=== PATIENT | male | born 1930 | race Caucasian/White ===

== ENCOUNTER → 2018-01-15 | Outpatient (CLI) | payer MEDICARE, BC ==
[2015-10-26 11:41] VITALS: BP 132/43
[~2018-01-15] MED LIST: ALLO300T PO; ATOR20TA58 PO; HYDR25TA9 PO; MULT-460 PO; NEBI5TAB2 PO; NITR0.4T22 SL; OMEP40CA5 PO; RIVA10TA PO
[2018-01-15 13:12] LABS: ALBUMIN 4.1 g/dL (3.4-5.0); ALBUMIN/GLOBULIN RATIO 1.1 (1.0-1.7); CALCIUM 9.3 mg/dL (8.5-10.1); CREATININE 1.6 mg/dL (0.7-1.3); POTASSIUM 4.2 mmol/L (3.5-5.1); TOTAL BILIRUBIN 0.8 mg/dL (0.2-1.0); TOTAL PROTEIN 7.8 g/dL (6.4-8.2)
== END ==
LOC: LAB 10:38
PROVIDERS: ATTEND Nurse Practitioner
DX: E78.5 Hyperlipidemia, unspecified (principal)
CPT/HCPCS: 36415; 80053; 80061

== ENCOUNTER 2018-10-18 20:46 | Emergency (ER) | payer MEDICARE, BC ==
[~2018-10-18] VITALS: Ht 190.5 cm; Wt 99.8 kg
--- NOTE | 2018-10-18 20:48 | ED.ADGEN ---
Past History Past Medical History: A-Fib, Arthritis, Cancer, GERD, High Cholesterol, Hypertension, Other Past Surgical History: Cancer Surgery, Knee Replacement, Other Alcohol Use: None Drug Use: None Adult General Chief Complaint Chief Complaint ".. I ve been having some nose bleeds... I was just watching cowboy show on TV and it really started bleeding..." [facility] HPI Patient is a 88 year old male who presents with above hx and complaints of epistaxis from right naris. No history of trauma. No history of recent upper respiratory infection. Patient appears to have stable clot in right anterior naris. There is no retropharyngeal bleeding at this time. Patient does take Xaralto and Aspirin. Application of Afrin to right naris and antibiotic ointment. Patient had no recurrence of bleeding while in the emergency department patient advised must return if return of bleeding. Must follow-up primary care. Return if any concerns. Patient to wear clonidine patch until follow-up with primary. Must hold NSAIDs for 2 days. Must hold Xaralto for 24 hours. Review of Systems Review of Systems Constitutional: Denies fever or chills [] Eyes: Denies change in visual acuity, redness, or eye pain [] HENT: Denies nasal congestion or sore throat []complaints of nasal bleeding Respiratory: Denies cough or shortness of breath [] Cardiovascular: No additional information not addressed in HPI [] GI: Denies abdominal pain, nausea, vomiting, bloody stools or diarrhea [] : Denies dysuria or hematuria [] Musculoskeletal: Denies back pain or joint pain [] Integument: Denies rash or skin lesions [] Neurologic: Denies headache, focal weakness or sensory changes [] Endocrine: Denies polyuria or polydipsia [] All other systems were reviewed and found to be within normal limits, except as documented in this note. Family History Family History Noncontributory Current Medications Current Medications Current Medications Medications (Trade) Dose Ordered Sig/Alaina Start Time Stop Time Status Last Admin Dose Admin Benzocaine (Hurricaine One) 1 spray 1X ONCE 10/18/18 21:00 10/18/18 21:09 DC 10/18/18 21:00 1 SPRAY Clonidine HCl (Catapres Tts-2) 1 patch 1X ONCE 10/18/18 22:45 10/18/18 22:46 DC 10/18/18 22:41 1 PATCH Clonidine HCl (Catapres) 0.2 mg 1X ONCE 10/18/18 21:00 10/18/18 21:11 DC 10/18/18 21:17 0.2 MG Neomycin/ Polymyxin/ Bacitracin (Triple Antibiotic Ointment) 1 pkt 1X ONCE 10/18/18 21:00 10/18/18 21:11 DC 10/18/18 21:00 1 PKT Phenylephrine HCl (Juan Manuel-Synephrine 1% Nasal) 2 drop 1X ONCE 10/18/18 21:00 10/18/18 21:11 DC 10/18/18 21:00 2 DROP Allergies Allergies Allergies Coded Allergies Type Severity Reaction Last Updated Verified Cephalosporins Allergy Intermediate rash 05/08/16 Yes Physical Exam Physical Exam Constitutional: , no acute distress, non-toxic appearance. [] HENT: Normocephalic, atraumatic, bilateral external ears normal, oropharynx moist, no oral exudates, nose right naris epistaxis. Eyes: PERRLA, EOMI, conjunctiva normal, no discharge. [] Neck: Normal range of motion, no tenderness, supple, no stridor. [] Cardiovascular:Heart ill regular rate and ill regular rhythm, PMI to Lt. Lungs & Thorax: Bilateral breath sounds equal at apex on auscultation [] Abdomen: Bowel sounds normal, soft, no tenderness, no masses, no pulsatile masses. [] Skin: Warm, dry, no erythema, no rash. [] No petechiae.. Some areas of point ecchymosis secondary to trauma. Poor turgor. Back: No tenderness, no CVA tenderness. [] Extremities: No tenderness, no cyanosis, no clubbing, ROM intact, no edema. Arthritic changes. Neurologic: Alert and oriented X 3, normal motor function, normal sensory function, no focal deficits noted. [] Psychologic: Affect normal, judgement normal, mood normal. [] Current Patient Data Vital Signs Vital Signs Date Time Temp Pulse Resp B/P (MAP) Pulse Ox O2 Delivery O2 Flow Rate FiO2 10/18/18 21:17 85 198/100 10/18/18 20:50 97.7 20 97 Room Air EKG EKG [] Radiology/Procedures Radiology/Procedures [] Course & Med Decision Making Course & Med Decision Making Pertinent Labs and Imaging studies reviewed. (See chart for details). Patient to not blow nose. May sniff. Apply antibiotic ointment to both nares 4 times a day. Do not take Xaralto for 24 hours. Do not take NSAIDs for 2 days. Wear clonidine patch until follow-up with primary care. Return if any concerns. [] Final Impression Final Impression 1. Right Epistaxis 2. Accelerated HTN [] Dragon Disclaimer Dragon Disclaimer This electronic medical record was generated, in whole or in part, using a voice recognition dictation system. DAMARIS MALONE MD Oct 18, 2018 20:48
[2018-10-18] MEDS ORDERED: PHENYLEPHRINE 1% NASAL DROP 30ML BOTTLE. NS ONE (21:00)
[2018-10-18] MEDS ORDERED: cloNIDine HCL 0.1 MG TABLET PO ONE (21:00)
[2018-10-18] MEDS ORDERED: BENZOCAINE ONE 20% MUCOSAL SPRAY. MM ×3 (21:00)
[2018-10-18] MEDS ORDERED: NEOMY/BACITR/POLYMYXIN OINT PACKET. TP ONE (21:00)
[2018-10-18] MEDS ORDERED: [UNRECOGNIZED DRUG - CODE] PO (21:11)
[2018-10-18] MEDS ORDERED: TRIA15CR50 TP (21:12)
[2018-10-18] MEDS ORDERED: METO50TA29 PO (21:12)
[2018-10-18] MEDS ORDERED: cloNIDine TTS-2 1 PATCH PATCH TD ONE (22:45)
[2018-10-18 23:05] VITALS: BP 165/87
== END 2018-10-18 23:08 | disposition home or self-care (01) ==
LOC: ER 20:46
DX: R04.0 Epistaxis (principal); I10 Essential (primary) hypertension; I48.91 Unspecified atrial fibrillation; M19.90 Unspecified osteoarthritis, unspecified site; K21.9 Gastro-esophageal reflux disease without esophagitis; E78.00 Pure hypercholesterolemia, unspecified; Z88.1 Allergy status to other antibiotic agents
CPT/HCPCS: 99284